=== PATIENT | male | born 1950 | race Caucasian/White ===

== ENCOUNTER 2021-09-10 16:24 | Inpatient (IN) | payer MEDICARE ==
[~2021-09-10] VITALS: Ht 183.1 cm; Wt 130.6 kg
[~2021-09-10 16:24] MED LIST: ASPIRIN CHEWABL81 MG PO; GABAPENTIN600 MG PO; JANUVIA 100MG100 MG PO; LOPRESSOR50 MG PO; METFORMIN HCL500 M1 PO; ONDANSETRON ODT4 MG PO/SL; PAROXETINE 20MG20 MG PO; PREDNISONE 10MG10 MG PO; SIMVASTATIN20 MG PO; VENTOLIN HFA IN18 GM INH; VICTOZA 3-0.6 MG/0.1 SC; ZPAK PO
[2021-09-10 17:18] LABS: BASOPHIL 0.2 % (0-2); EOSINOPHIL 0 % (0-7); HCT 47.1 % (42.0-52.0); HGB 15.4 g/dl (13.2-18.0); LYMPHOCYTE 8.3 % (15-48); MCH 27.4 pg (25.0-31.0); MCHC 32.7 g/dL (32.0-36.0); MCV 83.8 fL (78.0-100.0); MPV 10.5 fL (6.0-9.5); NEUTROPHIL 88.3 % (41-80); NRBC 0; PLT 119 K/uL (150-400); RBC 5.62 M/uL (4.70-6.00); RDW 16.1 % (11.5-14.0)
[2021-09-10 17:20] LABS: WBC 4.7 K/uL (4.0-10.5)
[2021-09-10 17:29] LABS: BILIRUBIN NEGATIVE (NEGATIVE); BLOOD 1+ Ery/uL (NEGATIVE); CLARITY CLEAR (CLEAR); COLOR YELLOW (YELLOW); GLUCOSE (U) NORMAL (NORMAL); LEUKOCYTES NEGATIVE Leu/uL (NEGATIVE); NITRITE NEGATIVE (NEGATIVE); PROTEIN 2+ mg/dL (NEGATIVE); SPECIFIC GRAVITY >=1.030 (1.001-1.030); UROBILINOGEN 0.2 mg/dL (0.2-1.0)
[2021-09-10 17:40] LABS: ALBUMIN 3.6 g/dL (3.4-5.0); BILIRUBIN - TOTAL 0.8 mg/dL (0.2-1.0); BUN/CREAT RATIO (CALC) 14.7 RATIO; CREATININE 0.95 mg/dL (0.67-1.17); GLOBULIN (CALCULATION) 3.8 g/dL; POTASSIUM 3.5 mmol/L (3.5-5.1); TOTAL PROTEIN 7.4 g/dL (6.4-8.2)
[2021-09-10 17:42] LABS: LACTIC ACID 4.6 mmol/L (0.4-1.9)
[2021-09-10 17:43] LABS: BACTERIA 1+; GRANULAR CASTS TRACE
[2021-09-10 17:44] LABS: URINARY WBC RARE
[2021-09-10 18:39] LABS: INFLUENZA A NAA NEGATIVE (NEGATIVE)
[2021-09-10 18:42] LABS: CORONAVIRUS 2019 SARS-COV-2 POSITIVE (NEGATIVE)
[2021-09-11 05:50] LABS: BASOPHIL 0.5 % (0-2); EOSINOPHIL 0 % (0-7); HCT 44.2 % (42.0-52.0); HGB 14.4 g/dl (13.2-18.0); LYMPHOCYTE 8.7 % (15-48); MCH 27.7 pg (25.0-31.0); MCHC 32.6 g/dL (32.0-36.0); MCV 85.2 fL (78.0-100.0); MONOCYTE 1.8 % (0-12); MPV 10.8 fL (6.0-9.5); NEUTROPHIL 88.4 % (41-80); NRBC 0; PLT 144 K/uL (150-400); RBC 5.19 M/uL (4.70-6.00)
[2021-09-11 05:52] LABS: WBC 7.8 K/uL (4.0-10.5)
[2021-09-11 06:39] LABS: CKMB 1.9 ng/mL (0.0-3.6)
[2021-09-11 07:18] LABS: ALBUMIN 2.5 g/dL (3.4-5.0); ALKALINE PHOSHATASE 48 U/L (46-116); ALT 31 U/L (16-63); AST 76 U/L (15-37); BILIRUBIN - TOTAL 2.2 mg/dL (0.2-1.0); BUN 20 mg/dL (7-18); BUN/CREAT RATIO (CALC) 12.7 RATIO; CHLORIDE 99 mmol/L (98-107); CO2 (BICARBONATE) 18 mmol/L (21-32); CREATININE 1.57 mg/dL (0.67-1.17); GLOBULIN (CALCULATION) 3.2 g/dL; GLUCOSE 343 mg/dL (74-106); LDH 523 U/L (85-227); MAGNESIUM 1.5 mg/dL (1.8-2.4); PHOSPHORUS 5.2 mg/dL (2.6-4.7); POTASSIUM 4.8 mmol/L (3.5-5.1); TOTAL PROTEIN 5.7 g/dL (6.4-8.2)
[2021-09-11 07:23] LABS: C-REACTIVE PROTEIN > 18.00 mg/dL (<=0.90)
[2021-09-11 14:13] LABS: BUN/CREAT RATIO (CALC) 11.2 RATIO; CREATININE 2.06 mg/dL (0.67-1.17); POTASSIUM 5.6 mmol/L (3.5-5.1)
[2021-09-11 15:39] LABS: LACTIC ACID 4.3 mmol/L (0.4-1.9)
--- NOTE | 2021-09-11 16:39 | NUR ---
09/11/21 Will monitor for discharge planning needs.
--- NOTE | 2021-09-11 20:05 | NUR ---
SUPINED AT 1100, WITH 4 PERSON AT RT, PRONED BACK AT 1415,WITH 4 PERSON AND RT, PT TOLERATED TURNS WELL.
[2021-09-12 04:27] LABS: BASOPHIL 0.3 % (0-2); EOSINOPHIL 0 % (0-7); HCT 39.8 % (42.0-52.0); HGB 13.1 g/dl (13.2-18.0); LYMPHOCYTE 4.2 % (15-48); MCH 27.3 pg (25.0-31.0); MCHC 32.9 g/dL (32.0-36.0); MCV 82.9 fL (78.0-100.0); MONOCYTE 4.4 % (0-12); MPV 10.6 fL (6.0-9.5); NRBC 0; PLT 102 K/uL (150-400); RDW 16.9 % (11.5-14.0); WBC 8.8 K/uL (4.0-10.5)
[2021-09-12 04:29] LABS: NEUTROPHIL 89.7 % (41-80)
[2021-09-12 04:58] LABS: CKMB 3.3 ng/mL (0.0-3.6)
[2021-09-12 05:24] LABS: ALBUMIN 2.1 g/dL (3.4-5.0); BUN/CREAT RATIO (CALC) 11.3 RATIO; CREATININE 2.93 mg/dL (0.67-1.17); GLOBULIN (CALCULATION) 2.7 g/dL; PHOSPHORUS 5.5 mg/dL (2.6-4.7); POTASSIUM 5.8 mmol/L (3.5-5.1); TOTAL PROTEIN 4.8 g/dL (6.4-8.2)
[2021-09-12 05:37] LABS: BILIRUBIN - TOTAL 4.3 mg/dL (0.2-1.0); MAGNESIUM 2.1 mg/dL (1.8-2.4)
[2021-09-12 12:30] LABS: BILIRUBIN - DIRECT 3.9 mg/dL (0.00-0.20)
--- NOTE | 2021-09-12 13:59 | NUR ---
Please monitor for 02 needs
[2021-09-12 17:38] LABS: URINE CREATININE 65.03 mg/dL (29.00-226.00)
[2021-09-13 05:30] LABS: BASOPHIL 0.3 % (0-2); EOSINOPHIL 0.1 % (0-7); HCT 40.8 % (42.0-52.0); HGB 12.8 g/dl (13.2-18.0); LYMPHOCYTE 2.4 % (15-48); MCH 26.7 pg (25.0-31.0); MCHC 31.4 g/dL (32.0-36.0); MCV 85.2 fL (78.0-100.0); MONOCYTE 6.3 % (0-12); MPV 10.2 fL (6.0-9.5); NRBC 0; PLT 159 K/uL (150-400); RBC 4.79 M/uL (4.70-6.00); RDW 17.6 % (11.5-14.0)
[2021-09-13 05:33] LABS: INR 1.35 (0.9-1.2)
[2021-09-13 05:43] LABS: WBC 19.8 K/uL (4.0-10.5)
[2021-09-13 06:05] LABS: ALBUMIN 1.9 g/dL (3.4-5.0); BILIRUBIN - DIRECT 3.9 mg/dL (0.00-0.20); BILIRUBIN - TOTAL 4.4 mg/dL (0.2-1.0); CREATININE 4.96 mg/dL (0.67-1.17); GLOBULIN (CALCULATION) 3.8 g/dL; POTASSIUM 5.6 mmol/L (3.5-5.1); TOTAL PROTEIN 5.7 g/dL (6.4-8.2)
[2021-09-13 09:54] LABS: BILIRUBIN NEGATIVE (NEGATIVE); BLOOD 3+ Ery/uL (NEGATIVE); CLARITY CLEAR (CLEAR); COLOR YELLOW (YELLOW); GLUCOSE (U) NORMAL (NORMAL); LEUKOCYTES NEGATIVE Leu/uL (NEGATIVE); NITRITE NEGATIVE (NEGATIVE); PROTEIN 1+ mg/dL (NEGATIVE); SPECIFIC GRAVITY 1.025 (1.001-1.030); UROBILINOGEN 0.2 mg/dL (0.2-1.0); pH 5.5 (5.0-9.0)
[2021-09-13 10:26] LABS: BACTERIA 1+
[2021-09-13 14:31] LABS: CREATININE 5.71 mg/dL (0.67-1.17)
[2021-09-13 18:41] LABS: CREATININE 6.1 mg/dL (0.67-1.17); POTASSIUM 5.7 mmol/L (3.5-5.1)
[2021-09-13 18:46] LABS: MAGNESIUM 2.8 mg/dL (1.8-2.4)
--- NOTE | 2021-09-13 21:36 | NUR ---
SPOKE TO YOLI FROM [facility] FOR UPDATES REGARDING THIS PATIENT. STILL NO BED AVAILABLE AT THIS TIME.
[2021-09-14 04:39] LABS: BASOPHIL 0.2 % (0-2); EOSINOPHIL 0 % (0-7); HCT 39.1 % (42.0-52.0); HGB 12.5 g/dl (13.2-18.0); LYMPHOCYTE 3.9 % (15-48); MCH 27.8 pg (25.0-31.0); MCV 86.9 fL (78.0-100.0); MONOCYTE 6.4 % (0-12); MPV 11.1 fL (6.0-9.5); NRBC 0.1; PLT 157 K/uL (150-400); RDW 18.5 % (11.5-14.0); WBC 24.2 K/uL (4.0-10.5)
[2021-09-14 04:40] LABS: NEUTROPHIL 83.9 % (41-80)
[2021-09-14 04:53] LABS: INR 1.29 (0.9-1.2); PROTHROMBIN TIME 15.4 SECONDS (11.8-13.4)
[2021-09-14 05:01] LABS: ALBUMIN 1.8 g/dL (3.4-5.0); CREATININE 6.81 mg/dL (0.67-1.17); MAGNESIUM 3.1 mg/dL (1.8-2.4); PHOSPHORUS 7.9 mg/dL (2.6-4.7); POTASSIUM 6.4 mmol/L (3.5-5.1); TOTAL PROTEIN 5.8 g/dL (6.4-8.2)
[2021-09-14 05:06] LABS: BILIRUBIN - TOTAL 2.4 mg/dL (0.2-1.0)
[2021-09-14 08:38] LABS: CREATININE 7.15 mg/dL (0.67-1.17)
[2021-09-14 08:48] LABS: POTASSIUM 6.6 mmol/L (3.5-5.1)
[2021-09-14 12:54] LABS: CREATININE 7.35 mg/dL (0.67-1.17)
[2021-09-14 12:56] LABS: POTASSIUM 6.6 mmol/L (3.5-5.1)
[2021-09-14 16:05] LABS: CREATININE 7.35 mg/dL (0.67-1.17); POTASSIUM 6.2 mmol/L (3.5-5.1)
[2021-09-14 21:01] LABS: CREATININE 7.78 mg/dL (0.67-1.17); POTASSIUM 6.4 mmol/L (3.5-5.1)
[2021-09-15 05:52] LABS: BASOPHIL 0.4 % (0-2); EOSINOPHIL 0 % (0-7); HCT 38.2 % (42.0-52.0); HGB 12.3 g/dl (13.2-18.0); LYMPHOCYTE 2.5 % (15-48); MCH 27.5 pg (25.0-31.0); MCHC 32.2 g/dL (32.0-36.0); MCV 85.3 fL (78.0-100.0); MONOCYTE 5.5 % (0-12); MPV 11.6 fL (6.0-9.5); NEUTROPHIL 76.7 % (41-80); NRBC 0.1; PLT 195 K/uL (150-400); RBC 4.48 M/uL (4.70-6.00); RDW 18.4 % (11.5-14.0)
[2021-09-15 05:59] LABS: WBC 33.9 K/uL (4.0-10.5)
[2021-09-15 06:10] LABS: BILIRUBIN - TOTAL 1.5 mg/dL (0.2-1.0); CREATININE 8.23 mg/dL (0.67-1.17); GLOBULIN (CALCULATION) 3.1 g/dL; MAGNESIUM 3.4 mg/dL (1.8-2.4); POTASSIUM 6.4 mmol/L (3.5-5.1); TOTAL PROTEIN 5.1 g/dL (6.4-8.2)
[2021-09-15 10:05] LABS: CREATININE 8.3 mg/dL (0.67-1.17); POTASSIUM 6.3 mmol/L (3.5-5.1)
--- NOTE | 2021-09-15 14:15 | NUR ---
09/15/21 Patient is ventilated. Will monitor for needs and family support.
[2021-09-15 15:59] LABS: CREATININE 8.55 mg/dL (0.67-1.17)
[2021-09-15 16:10] LABS: POTASSIUM 6.9 mmol/L (3.5-5.1)
[2021-09-15 19:09] LABS: CREATININE 8.98 mg/dL (0.67-1.17)
[2021-09-15 19:15] LABS: POTASSIUM 7.1 mmol/L (3.5-5.1)
[2021-09-16 03:08] LABS: CREATININE 9.25 mg/dL (0.67-1.17)
[2021-09-16 03:22] LABS: POTASSIUM 7.5 mmol/L (3.5-5.1)
[2021-09-16 05:30] LABS: BASOPHIL 0.4 % (0-2); EOSINOPHIL 0 % (0-7); HCT 34.9 % (42.0-52.0); HGB 11.1 g/dl (13.2-18.0); LYMPHOCYTE 2.2 % (15-48); MCH 27.2 pg (25.0-31.0); MCHC 31.8 g/dL (32.0-36.0); MCV 85.5 fL (78.0-100.0); MONOCYTE 6.5 % (0-12); MPV 11.1 fL (6.0-9.5); NEUTROPHIL 74.8 % (41-80); NRBC 0.2; PLT 227 K/uL (150-400); RBC 4.08 M/uL (4.70-6.00); RDW 18.2 % (11.5-14.0)
[2021-09-16 05:33] LABS: WBC 28.6 K/uL (4.0-10.5)
[2021-09-16 05:42] LABS: INR 1.44 (0.9-1.2); PROTHROMBIN TIME 16.8 SECONDS (11.8-13.4)
[2021-09-16 05:43] LABS: PTT 69.7 SECONDS (24.4-34.7)
[2021-09-16 07:06] LABS: ALBUMIN 1.9 g/dL (3.4-5.0); BILIRUBIN - TOTAL 1.1 mg/dL (0.2-1.0); C-REACTIVE PROTEIN 7.5 mg/dL (<=0.90); CREATININE 9.32 mg/dL (0.67-1.17); GLOBULIN (CALCULATION) 3.3 g/dL; MAGNESIUM 3.5 mg/dL (1.8-2.4); PHOSPHORUS 9.3 mg/dL (2.6-4.7); TOTAL PROTEIN 5.2 g/dL (6.4-8.2)
[2021-09-16 07:08] LABS: HBSAG SCREEN Negative (Negative); HEP A AB, IGM Negative (Negative); HEP B CORE AB, IGM Negative (Negative); HEP C VIRUS AB <0.1 (0.0-0.9)
[2021-09-16 07:10] LABS: POTASSIUM 6.8 mmol/L (3.5-5.1)
--- NOTE | 2021-09-16 19:21 | NUR ---
0900: 50 ML DARK BLOOD NOTED DURING ASSESSMENT OF RESIDUAL, OG TUBE HOOKED UP TO SUCTION, TOTAL OF 150 ML DARK BLOOD NOTED, MD AWARE. WILL CONTINUE TO CHECK RESIDUALS INTERMITTENTLY BUT TO D/C SUCTION. IF 50 ML OR > OF BLOOD NOTED, ALERT MD.
--- NOTE | 2021-09-16 19:23 | NUR ---
1347: SPOKE WITH DR THOMAS VIA TELEPHONE, ORDER FOR 1 TIME DOSE OF DDAVP 0.3 MCG/KG IV FOR INDICATION OF UREMIC BLEEDING. PHARMACY CALLED TO DOSE MEDICATION. MD MADE AWARE OF DOSE AND HEPARIN HELD. RN AT BEDSIDE DURING DDAVP INFUSION TO MONITOR.
--- NOTE | 2021-09-16 19:25 | NUR ---
1430: RN AT BEDSIDE, NOTED THAT PT RIGHT FOOT HAD VOLUNTARY MOVEMENT, CHECKED GAG REFLEX AND IT WAS PRESENT, CORNEAL REFLEX INTACT, PUPILS REMAIN 2 MM AND SLUGGISH, BABINSKI REFLEX ALSO INTACT. RN NOTIFIED MD OF CHANGE AND ASKED FOR FENTANYL GTT. VERBAL ORDER GIVEN FOR FENTANYL.
--- NOTE | 2021-09-16 19:28 | NUR ---
PT WAS TAKEN OFF LIST AT [facility] PER WITHOUT OUR FACILITY KNOWING, THEY SAID IT WAS R/T POSSIBLE BRAIN AND TO INITIATE COMFORT CARE. MD CONTACTED [facility] AND DISCUSSED THE ISSUES WITH DECLARING BRAIN AT THIS FACILITY SINCE WE DO NOT HAVE THE RESOURCES. PT WAS ACCEPTED TO [facility] BY DR. HARVEY AND WE ARE CURRENTLY AWAITING A BED. FAMILY WAS UPDATED ON THE SITUATION AND AT 1600 WE CALLED FOR AN UPDATE AND WE ARE STILL AWAITING BED PLACEMENT. FAMILY REQUESTED WE PLACE PT ON LIST AT [facility] BECAUSE "SOMEONE ON FACEBOOK SAID THEY HAD ICU BEDS AND GAVE THE TRANSFER CENTER NUMBER" SO RN CALLED AND PLACED PT ON LIST. [facility] HAS NO BEDS AT THIS TIME AND THEY ARE TRYING TO KEEP BEDS FOR IN-NETWORK TRANSFERS.
[2021-09-17 04:35] LABS: HCT 28.6 % (42.0-52.0); HGB 9.4 g/dl (13.2-18.0); MCH 27.7 pg (25.0-31.0); MCHC 32.9 g/dL (32.0-36.0); MCV 84.4 fL (78.0-100.0); MPV 11.7 fL (6.0-9.5); RBC 3.39 M/uL (4.70-6.00); RDW 17.6 % (11.5-14.0)
[2021-09-17 05:05] LABS: CHLORIDE 99 mmol/L (98-107); CO2 (BICARBONATE) 26 mmol/L (21-32); CREATININE 10.17 mg/dL (0.67-1.17); GLUCOSE 390 mg/dL (74-106)
[2021-09-17 05:10] LABS: BUN >225 mg/dL (7-18); POTASSIUM 6.3 mmol/L (3.5-5.1)
--- NOTE | 2021-09-17 16:18 | NUR ---
[facility] ST[facility] AVAILABLE 0835 [facility], PT STILL ON LIST AT [facility] BUT THEY DID NOT ASK FOR ANY UPDATES THIS MORNING. 1437 BAKARI BOBO CALLED BACK AND SAID HE WAS MOVED TO TOP OF THE LIST, AND THOUGHT THEY MIGHT HAVE A BED TODAY BUT NONE AT THIS TIME. 1535 KEON FROM [facility] CALLED BACK,FOR UPDATES STILL NO BED AVAILABLE AT THIS TIME
--- NOTE | 2021-09-17 17:22 | NUR ---
DR RICARDO CALLED TO GET UPDATE ON MOST RECENT LABS, K 6.3 BUN >225 CREATININE 10.17 NO NEW ORDERS GIVEN
--- NOTE | 2021-09-17 20:57 | NUR ---
NEWTON FROM [facility] CALLED TO CHECK ON STATUS ON PT. NO NEW CHANGES REPORTED. ER,RN
[2021-09-18 04:15] LABS: HCT 26.9 % (42.0-52.0); HGB 9.1 g/dl (13.2-18.0); MCH 27.5 pg (25.0-31.0); MCHC 33.8 g/dL (32.0-36.0); MCV 81.3 fL (78.0-100.0); MPV 11.2 fL (6.0-9.5); RBC 3.31 M/uL (4.70-6.00); RDW 16.8 % (11.5-14.0); WBC 26.1 K/uL (4.0-10.5)
[2021-09-18 04:56] LABS: CHLORIDE 95 mmol/L (98-107); CO2 (BICARBONATE) 28 mmol/L (21-32); CREATININE 10.04 mg/dL (0.67-1.17); GLUCOSE 282 mg/dL (74-106)
[2021-09-18 05:00] LABS: BUN >225 mg/dL (7-18)
[2021-09-18 05:01] LABS: POTASSIUM 6.2 mmol/L (3.5-5.1)
--- NOTE | 2021-09-18 17:27 | NUR ---
09/18/21 Patient was transferred to [facility].
== END 2021-09-18 09:30 | disposition other institution (70) | DRG 870 ==
LOC: FER 16:24 → FICU 23:28
PROVIDERS: Family Medicine; Hospitalist; Internal Medicine; Internal Medicine Cardiovascular Disease; Nurse Practitioner; ADMIT Internal Medicine
PROC: 0BH17EZ Insertion of Endotracheal Airway into Trachea, Via Natural or Artificial Opening (ICD-10-PCS; principal; 2021-09-10)
PROC: 5A1955Z Respiratory Ventilation, Greater than 96 Consecutive Hours (ICD-10-PCS; 2021-09-10)
PROC: 3E043XZ Introduction of Vasopressor into Central Vein, Percutaneous Approach (ICD-10-PCS; 2021-09-10)
PROC: 06HY33Z Insertion of Infusion Device into Lower Vein, Percutaneous Approach (ICD-10-PCS; 2021-09-10)
PROC: XW033E5 Introduction of Remdesivir Anti-infective into Peripheral Vein, Percutaneous Approach, New Technology Group 5 (ICD-10-PCS; 2021-09-10)
PROC: 8E0ZXY6 Isolation (ICD-10-PCS; 2021-09-10)
PROC: 03HY32Z Insertion of Monitoring Device into Upper Artery, Percutaneous Approach (ICD-10-PCS; 2021-09-11)
PROC: XW0DXM6 Introduction of Baricitinib into Mouth and Pharynx, External Approach, New Technology Group 6 (ICD-10-PCS; 2021-09-11)
DX: A41.89 Other specified sepsis (principal); U07.1 COVID-19; J12.82 Pneumonia due to coronavirus disease 2019; R65.21 Severe sepsis with septic shock; J80 Acute respiratory distress syndrome; N17.0 Acute kidney failure with tubular necrosis; J15.9 Unspecified bacterial pneumonia; I21.A1 Myocardial infarction type 2; G93.41 Metabolic encephalopathy; K92.2 Gastrointestinal hemorrhage, unspecified; J44.0 Chronic obstructive pulmonary disease with (acute) lower respiratory infection; M62.82 Rhabdomyolysis; G93.1 Anoxic brain damage, not elsewhere classified; K56.7 Ileus, unspecified; I48.92 Unspecified atrial flutter; Z66 Do not resuscitate; I48.91 Unspecified atrial fibrillation; E87.5 Hyperkalemia; L89.816 Pressure-induced deep tissue damage of head; L89.896 Pressure-induced deep tissue damage of other site; K21.9 Gastro-esophageal reflux disease without esophagitis; G89.29 Other chronic pain; I25.10 Atherosclerotic heart disease of native coronary artery without angina pectoris; E11.40 Type 2 diabetes mellitus with diabetic neuropathy, unspecified; E66.9 Obesity, unspecified; Z95.1 Presence of aortocoronary bypass graft; Z87.891 Personal history of nicotine dependence; Z98.890 Other specified postprocedural states; I25.2 Old myocardial infarction; Z68.34 Body mass index [BMI] 34.0-34.9, adult
CPT/HCPCS: 31500; 36415; 36600; 70450; 71045; 71275; 76700; 80048; 80053; 80074; 80202; 81001; 82150; 82248; 82550; 82553; 82570; 82728; 82803; 82962; 83605; 83615; 83735; 83880; 84100; 84145; 84300; 84484; 85025; 85379; 85384; 85610; 85730; 86140; 87040; 87088; 92950; 93005; 94002; 94640; 96365; 96366; 96367; 96375; C9113; C9399; J0282; J0330; J0610; J0692; J1100; J1644; J1650; J1885; J2020; J2185; J2250; J2543; J2597; J2704; J3010; J3105; J3370; J3475; J7030; J7050; J7060; J7070; J7120; Q9967; U0002